=== PATIENT | female | born 1960 | race Caucasian/White ===

== ENCOUNTER 2019-11-11 11:51 | Inpatient (IN) | payer OTHER ==
[~2019-11-11] VITALS: Ht 167.6 cm; Wt 79.4 kg
[2019-11-22] MEDS ORDERED: PANADOL EXTRA500 MG PO (10:32)
[2019-11-22] MEDS ORDERED: FLONASE16 GM (10:33)
[2019-11-22] MEDS ORDERED: ZYRTEC10 M3 PO (10:33)
[2019-11-22] MEDS ORDERED: PROAIR HFA8.5 GM IH (10:34)
[2019-12-03] MEDS ORDERED: HYOSCYAMINE0.125 M1 SL (13:15)
[2019-12-03] MEDS ORDERED: OXYC1TAB9 PO (13:15)
== END 2019-12-03 14:35 | disposition home or self-care (01) | DRG 331 ==
LOC: SURH 11-30 09:00 → O/R 11-30 09:19 → SURG 11-30 09:19 → SURH 11-30 11:00 → SURG 11-30 16:11
PROVIDERS: ADMIT Surgery; ATTEND Surgery
PROC: 07BB4ZX Excision of Mesenteric Lymphatic, Percutaneous Endoscopic Approach, Diagnostic (ICD-10-PCS; 2019-11-30)
PROC: 0DTG4ZZ Resection of Left Large Intestine, Percutaneous Endoscopic Approach (ICD-10-PCS; principal; 2019-11-30 11:00)
DX: C18.6 Malignant neoplasm of descending colon (principal); R59.0 Localized enlarged lymph nodes

== ENCOUNTER 2021-01-17 06:30 | Day surgery (SDC) | payer OTHER ==
[~2021-01-17 06:30] MED LIST: FLONASE16 GM; HYOSCYAMINE0.125 M1 SL; OXYC1TAB9 PO; PANADOL EXTRA500 MG PO; PROAIR HFA8.5 GM IH; ZYRTEC10 M3 PO
== END 2021-01-17 10:00 | disposition home or self-care (01) ==
LOC: AMB-ENDOS 06:30
PROVIDERS: ATTEND Surgery
DX: D12.3 Benign neoplasm of transverse colon (principal); Z20.822 Contact with and (suspected) exposure to COVID-19